=== PATIENT | male | born 1950 | race Caucasian/White ===

== ENCOUNTER 2017-08-18 11:32 | Emergency (ER) | payer MEDICARE, OTHER ==
[~2017-08-18] VITALS: Ht 170.2 cm; Wt 63.6 kg
[2017-08-18 11:57] LABS: GLUCOSE COMMENT 2 Doctor Notified; GLUCOSE,POINT OF CARE 538 MG/DL (70-110)
[2017-08-18] MEDS ORDERED: SODIUM CHLORIDE 0.9% 1,000 ML IV ONE (12:00)
[2017-08-18] MEDS ORDERED: GABA-529 PO (12:10)
[2017-08-18] MEDS ORDERED: SIMV-259 PO (12:10)
[2017-08-18] MEDS ORDERED: HYDR10TA31 PO (12:11)
[2017-08-18] MEDS ORDERED: HYDR25TA PO (12:11)
[2017-08-18] MEDS ORDERED: AMLO2.5T PO (12:11)
[2017-08-18] MEDS ORDERED: METO25XL PO (12:11)
[2017-08-18] MEDS ORDERED: LEVO25TA9 PO (12:11)
[2017-08-18 12:29] LABS: BASOPHILS # (AUTO) 0.01 K/uL (0.00-0.20); BASOPHILS % (AUTO) 0.2 % (0.0-2.0); EOSINOPHILS # (AUTO) 0.02 K/uL (0.00-0.70); EOSINOPHILS % (AUTO) 0.48 % (1.0-6.0); HEMATOCRIT 24.5 % (41-53); HEMOGLOBIN 8.1 g/dL (13.5-17.5); LYMPHOCYTES # (AUTO) 0.7 K/uL (1.0-4.8); LYMPHOCYTES % (AUTO) 19.1 % (22.0-44.0); MEAN CORPUSCULAR HEMOGLOBIN 24.2 pg (26.0-34.0); MEAN CORPUSCULAR HGB CONC 33.1 G/dL (31.0-37.0); MEAN CORPUSCULAR VOLUME 73 fL (80-100); MONOCYTES # (AUTO) 0.2 K/uL (0.1-1.0); MONOCYTES % (AUTO) 5.1 % (2.0-9.0); NEUTROPHILS # (AUTO) 2.7 K/uL (1.8-7.7); NEUTROPHILS % (AUTO) 75.1 % (40.0-70.0); RED BLOOD CELL COUNT(AUTO) 3.36 MIL/uL (4.50-5.90); RED CELL DISTRIBUTION WIDTH 16.3 % (11.5-14.5); WHITE BLOOD COUNT (AUTO) 3.6 K/uL (4.5-11.0)
[2017-08-18 12:40] LABS: ALANINE AMINOTRANSFERASE 73 U/L (12-78); ALBUMIN 2.4 g/dL (3.4-5.0); ANION GAP 8 mmol/L (8-16); ASPARTATE AMINOTRANSFERASE 66 U/L (15-37); BILIRUBIN,TOTAL 0.4 mg/dL (0.1-1.0); CALCIUM, TOTAL 8.5 mg/dL (8.8-10.5); CARBON DIOXIDE 24 mmol/L (22-29); CHLORIDE 100 mmol/L (98-107); CREATININE 1.02 mg/dL (0.60-1.30); GLOMERULAR FILTR. RATE CALC > 60 mL/min (>60); POTASSIUM 3.9 mmol/L (3.5-5.1); SODIUM SERUM 132 mmol/L (136-145); TOTAL PROTEIN, SERUM 7.4 g/dL (6.4-8.2); UREA NITROGEN, BLOOD 23 mg/dL (7-18)
[2017-08-18 12:41] LABS: LACTIC ACID 1.1 mmol/L (0.4-2.0)
[2017-08-18 13:01] VITALS: BP 159/84
[2017-08-18 13:18] LABS: PLATELET COUNT (AUTO) 39 K/uL (150-450); RBC MORPHOLOGY COMMENT ABNORMAL RBC MORPH
[2017-08-18 14:07] LABS: GLUCOSE,POINT OF CARE 435 MG/DL (70-110)
[2017-08-18 14:57] LABS: GLUCOSE COMMENT 2 Doctor Notified; GLUCOSE,POINT OF CARE 434 MG/DL (70-110)
== END 2017-08-18 15:45 | disposition home or self-care (01) ==
LOC: EMS 11:33
DX: E11.65 Type 2 diabetes mellitus with hyperglycemia (principal); D64.9 Anemia, unspecified; D72.819 Decreased white blood cell count, unspecified; Z79.4 Long term (current) use of insulin
CPT/HCPCS: 82010; 82948; 82962; 83605; 93005; 96360; 99285; J7030